=== PATIENT | male | born 1985 | race Caucasian/White ===

== ENCOUNTER 2016-05-28 15:30 | Emergency (ER) | payer OTHER ==
--- NOTE | 2016-05-28 18:47 | DIAGNOSTIC IMAGING REPORT ---
PROCEDURE: CT ABD/PELVIS WITH CONTRAST CLINICAL INDICATION: ABDOMINAL PAIN, initial encounter TECHNIQUE: 125 ml of Isovue 300 were injected intravenously and axial images were obtained of the entire abdomen and pelvis with sagittal and coronal reformations. COMPARISON: None. FINDINGS: ABDOMEN: Wall thickening with mild inflammatory changes of the gastric antrum with a focal defect suggestive of gastritis and possible ulcer.. Lung bases are clear. Heart size is normal. Liver, gallbladder, pancreas, spleen, adrenal glands, kidneys and abdominal aorta are normal. Stool throughout the large bowel. PELVIS: Appendix not visualized but no evidence of acute appendicitis. No prominent right lower quadrant lymph nodes. No pelvic mass, inflammatory changes or free fluid. No suspicious osseous lesions. IMPRESSION: 1. Findings suggestive of gastritis and possible gastric ulcer 2. Obstipation 3. Results discussed with Dr. Burch All CT scans at this facility use dose modulation, iterative reconstruction, and/or weight-based dosing when appropriate to reduce radiation dose to as low as reasonably achievable.
--- NOTE | 2016-05-28 18:48 | ED CLINICAL REPORT ---
Clinical Report - Physicians/Mid Levels [facility] [address] [place] [address] 05/28/2016 15:31 Patient: TRACIE CHAVEZ Time Seen: 16:29. Arrived- By private vehicle. Historian- patient. HISTORY OF PRESENT ILLNESS Chief Complaint: ABDOMINAL PAIN. At its maximum, severity described as moderate. When seen in the E.D., severity described as moderate. Modifying factors- worsened by food and swallowing. Relieved by rest. This started about 1 week ago and is still present. It was gradual in onset and has been waxing/waning. It is described as "pain" and it is described as located in the epigastric area and radiating to the upper back. The patient has had nausea. No vomiting or diarrhea. (Started one week ago today. Pain located in epigastric area as well as mid back. Pt states he has been nauseated but no emesis, as well as he states he has not had a bowel movement in a week.). He has had nausea, constipation and abdominal pain). No recent travel. Similar symptoms previously: Diagnosis: ulcer. Recent medical care: Not recently seen/assessed. REVIEW OF SYSTEMS The patient has had constipation and back pain. No black stools, hematemesis, difficulty with urination, pain with urination or urinary frequency. No bloody stools, fever, headache, sore throat or chest pain. No difficulty breathing, cough, joint pain or skin rash. Last bowel movement- several days ago. All systems otherwise negative, except as recorded above. PAST HISTORY Peptic ulcer diagnosed about 6 years ago. PCP: [facility]. No history of gallstones or bowel obstruction. Has not had urinary calculi. ( Opiate dependence - taking suboxone). Surgeries: No history of previous surgery. SOCIAL HISTORY Smoker- current status unknown. No alcohol use or drug use. ADDITIONAL NOTES The nursing notes have been reviewed. PHYSICAL EXAM Vital Signs: 05/28/2016 16:04 BP: 131/93. HR: 115. RR: 18. O2 saturation: 100%. Temp: 98.2 F. Pain level now: 6/10. Appearance: Alert. Oriented X3. Patient in mild distress. Eyes: Eyes normal inspection. No scleral icterus or pale conjunctivae. ENT: Nose normal. Pharynx normal. Neck: Normal inspection. Neck supple. No JVD. CVS: Tachycardia. Heart sounds normal. Pulses normal. Respiratory: No respiratory distress. Breath sounds normal. Abdomen: Soft. Moderate tenderness in the epigastric area. No tenderness in the right upper quadrant or Ibarra's sign present. No mass. No rebound tenderness or guarding. Back: Normal inspection. No CVA tenderness. Skin: Skin warm and dry. Normal skin color. Normal skin turgor. Extremities: Extremities exhibit normal ROM. No lower extremity edema. Neuro: Oriented X 3. No motor deficit. LABS, X-RAYS, AND EKG Abdominal CT: IMPRESSION: 1. Findings suggestive of gastritis and possible gastric ulcer 2. Obstipation. Study type: abdomen and pelvis. Abdominal CT performed with IV contrast. The study was interpreted by the radiologist and discussed with the radiologist. Laboratory Tests: UA-Culture if indicated: (JANIA: 05/28/2016 16:30) ( [facility] 05/28/2016 16:55) Final results Test Result Flag Units (Reference) URINE COLOR YELLOW URINE APPEARANCE CLEAR URINE GLUCOSE NEGATIVE (NEGATIVE) URINE BILIRUBIN NEGATIVE (NEGATIVE) URINE KETONE NEGATIVE (NEGATIVE) URINE SPECIFIC GRAVITY >= 1.030 (1.010-1.030) URINE PH 6.0 (5.0-8.0) URINE PROTEIN NEGATIVE (NEGATIVE) URINE UROBILINOGEN 0.2 EU/dL (0.2-1.0) URINE NITRITE NEGATIVE (NEGATIVE) URINE BLOOD NEGATIVE (NEGATIVE) URINE LEUK ESTERASE NEGATIVE (NEGATIVE) URINE RBC NONE SEEN rbc/hpf (0-1) URINE WBC RARE wbc/hpf (0-1) URINE EPITHELIAL CELLS RARE EPI/hpf (0-5) URINE BACTERIA NONE SEEN (NONE SEEN) URINE COMMENT CULT NOT INDICATED 1+ MUCUSURINE CULTURES ARE SET-UP BASED ON THE FOLLOWING CRITERIA:POSITIVE NITRITEPOSITIVE LEUKOCYTE ESTERASEGREATER THAN 10 WHITE BLOOD CELLSMODERATE (2+) OR GREATER BACTERIA CBC w Diff: (JANIA: 05/28/2016 16:25) ( [facility] [place] 05/28/2016 17:15) Final results Test Result Flag Units (Reference) WHITE BLOOD COUNT 11.1 K/uL (4.5-11.5) RED BLOOD COUNT 4.66 M/uL (4.50-5.90) HEMOGLOBIN 13.5 gm/dL (13.5-17.5) HEMATOCRIT 40.9 L % (41.0-53.0) MEAN CELL VOLUME 88 fL (80-100) MEAN CORPUSCULAR HGB 29 pg (26-34) MEAN CORPUSCULAR HGB CONC 33 g/dL (31-37) RED CELL DISTRIBUTION WIDTH 12.8 % (11.6-14.8) PLATELET COUNT 264 K/uL (150-400) NEUTROPHIL % 61.2 % (50-75) LYMPH % 29.3 % (25-40) MONO % 6.6 % (3-14) EOSINOPHIL % 2.6 % (0-4) BASOPHIL % 0.3 % (0-2) Urine Drug Screen: (JANIA: 05/28/2016 16:30) ( MsgRcvd 05/28/2016 17:07) Final results Test Result Flag Units (Reference) AMPHETAMINE/METHAMPHETAMINE NEGATIVE (NEGATIVE) BARBITURATE NEGATIVE (NEGATIVE) BENZODIAZEPINE NEGATIVE (NEGATIVE) CANNABINOID NEGATIVE (NEGATIVE) COCAINE NEGATIVE (NEGATIVE) ECSTASY NEGATIVE (NEGATIVE) METHADONE NEGATIVE (NEGATIVE) OPIATE NEGATIVE (NEGATIVE) The urine drug screen is a qualitative screening test fordrug overdose and abuse. All screen results should beconsidered as presumptive.Drugs screened for are as follows:BenzodiazepinesCocaineAmphetamines/MetamphetaminesTHC (Tetrahydrocannabinol)OpiatesBarbituratesEcstasyMethadonePositive results are unconfirmed. For confirmation, notifythe lab for the specimen to be sent to the reference lab.All confirmations must be performed by a differentmethodology.The ingestion of natural herbal and plant productscontaining Ephedra/Ephedra metabolites can produce in urineone or more substances capable of cross reacting withamphetamine/methamphetamine immunoassays. These testsprovide a preliminary result only. A more specificalternative chemical method must be used to obtain aconfirmed analytical result. CMP: (JANIA: 05/28/2016 16:25) ( MsgRcvd 05/28/2016 17:17) Final results Test Result Flag Units (Reference) GLUCOSE 88 mg/dL (70-110) BUN 14 mg/dL (7-18) CREATININE 1.0 mg/dL (0.6-1.3) Estimated GFR >60 mL/min Estimated GFR- >60 mL/min Note: Persistent reduction over 3 months in eGFR<60 mL/min/1.73 m2 defines CKD. Patients with eGFR values>=60 mL/min/1.73 m2 may also have CKD if evidence ofpersistent proteinuria. Additional information may be foundat www.kidney.org. SODIUM 142 mmol/L (136-145) POTASSIUM 4.0 mmol/L (3.5-5.1) CHLORIDE 106 mmol/L (98-107) CARBON DIOXIDE 29 mmol/L (21-32) CALCIUM 8.8 mg/dL (8.5-10.1) TOTAL PROTEIN 7.0 g/dL (6.4-8.2) ALBUMIN 3.9 g/dL (3.3-5.0) BILIRUBIN, TOTAL 0.2 mg/dL (0.0-1.0) ALKALINE PHOSPHATASE 107 U/L (46-116) AST (SGOT) 13 L U/L (15-37) ALT (SGPT) 28 U/L (12-78) LIPASE 100 U/L (73-393) AMYLASE 55 U/L (25-115) . Pulse Oximetry: 05/28/2016 16:04 O2 saturation: 100%. (FIO2 - room air). Interpretation: normal. PROGRESS AND PROCEDURES Course of Care: Normal Saline 1 liter IVPB given. Carafate 1 gm PO given. Zofran 4 mg IVP given. Protonix 40 mg IVP given. Reglan 10 mg IVP given. Patient is stable. Physical exam findings are improved. Symptoms much better. Patient/family counseled. Old ED records reviewed. Disposition: Discharged. Condition: stable and improved. CLINICAL IMPRESSION Acute epigastric abdominal pain of unknown cause. Acute gastric ulcer disease. No GI bleeding or perforation. Constipation INSTRUCTIONS Rest. Do not work for three days. Drink plenty of fluids. No alcohol. Avoid alcohol and NSAIDS. Examples of NSAIDS include aspirin, ibuprofen (Advil) and naproxen (Aleve). Avoid fatty, fried/greasy, lactose-containing (such as milk, cheese and ice cream), salty and spicy foods. Do not smoke. Seek medical help to quit smoking. Warnings: Further evaluation is necessary in order to recheck abnormal lab, obtain test results, conduct further tests and assess the possibility of serious illness. It is very important to follow up with a physician. CONTROLLED SUBSTANCE WARNINGS. GENERAL WARNINGS: Return or contact your physician immediately if your condition worsens or changes unexpectedly, if not improving as expected, or if other problems arise. Prescription Medications: Hydrocodone/APAP 5mg / 325mg: take 1-2 orally every 8 hours as needed for pain. Dispense ten (10). No refill. Carafate 1 gm tablets: take 1 orally four times daily (1 hour before meals and at bedtime). Dispense sixty (60). No refills. Substitution is permissible. Prilosec 20 mg capsules: Take 1 capsule orally once daily. Dispense fifteen (15). No refills. Substitution is permissible. OTC Medications: Take magnesium citrate and Fleets enema according to label instructions. Available over the counter. Dulcolax (available over the counter): take according to label instructions. Follow-up: Follow up with your doctor [facility] [place] tomorrow. Follow-up with: Felipe Durham MD, General Surgeon, , [facility], [address] [place] [address], [facility] Follow up. Call for the next available appointment. (Electronically signed by Felipe Burch DO 05/29/2016 8:00)
--- NOTE | 2016-05-28 18:49 | ED NURSING NOTES ---
Clinical Report - Nurses [facility] [address] [place] [address] 05/28/2016 15:31 Patient: TRACIE CHAVEZ TRIAGE Triage time 16:04. Acuity: LEVEL 4. Chief Complaint: ABDOMINAL PAIN and NAUSEA. 16:14 05/28/16. 16:14 05/28/16. DARREN COMA SCORE: [place] Coma Scale: 15- eyes open spontaneously (4); best verbal response- oriented x 4 (5); best motor response- obeys commands (6). --16:14 Allegra Forrester R.N. 16:04 05/28/16. BP: 131/93. HR: 115. RR: 18. O2 saturation: 100%. Temp: 98.2 F. Pain level now: 6/10. Additional comments: Pt states 6/10 epigastric pain, states it feels like someone is "pulling apart" his stomach. Also states that he has back pain that is about the same height but tends to be more on left side of back. . --16:14 Allegra Forrester R.N. Weight: 79.3 kg stated. Height/Length: 70 inches Per Patient. BMI: 25.1. --16:07 Allegra Forrester R.N. Medications None. --16:15 Allegra Forrester R.N. Allergies None. --16:15 Allegra Forrester R.N. History Arrived by private vehicle. 16:14 05/28/16. ( Started one week ago today. Pain located in epigastric area as well as mid back. Pt states he has been nauseated but no emesis, as well as he states he has not had a bowel movement in a week.). He has had nausea, constipation and abdominal pain. Treatment KARATE BLACK BELT: Took Tylenol and an antacid. (cyclobenzapine for back pain). PAST MEDICAL HX: Immunizations: up-to-date. (peptic ulcer). SOCIAL HX: Light tobacco smoker- less than 1/2 a pack per day. Alcohol use. (none). History of drug use. (none). FALL RISK ASSESSMENT: Fall risk assessment completed. No fall risk identified. NUTRITIONAL RISK ASSESSMENT: The nutritional risk assessment revealed no deficiencies. FUNCTIONAL ASSESSMENT: Functional assessment: no impairments noted. LEARNING NEEDS ASSESSMENT: The learning needs assessment revealed no barriers. SKIN INTEGRITY ASSESSMENT: Skin integrity risk assessment completed. No skin integrity risk identified. --16:14 Allegra Forrester R.N. Assessment 16:14 05/28/16. He states feels the same. --16:14 Allegra Forrester R.N. Interventions 16:14 05/28/16. 16:14 05/28/16. ID band on patient. --16:14 Allegra Forrester R.N. PHYSICAL ASSESSMENT Ambulatory to room. GENERAL / NEURO / PSYCH: Alert. Oriented X 4. Appears in pain. HEENT: Mucous membranes are pink. RESPIRATORY: Respirations not labored. GI / : Abdominal tenderness in the upper abdomen and epigastric area. SKIN: Skin is warm and dry. --16:20 Marlon Green R.N. NURSING PROGRESS NOTES Patient gowned. Reassurance given. Patient identifiers checked. Call light placed in reach. Side rails up x 1. Bed placed in lowest position. Brakes of bed on. Patient ready for evaluation- chart flagged and ED physician notified. --16:21 Marlon Green R.N. 16:24 05/28/16. Patient ID band checked for patient name, birthdate and medical record number: patient confirmed. Clean catch urine collected with return of yellow-colored clear urine; odor is normal; sample sent to lab for urinalysis and culture. Specimen labeled in the presence of the patient. --16:24 Marlon Green R.N. 16:42 05/28/2016 Site #1 started via IV in the right antecubital space with an 20g angiocath, with aseptic technique and good blood return; one attempt. Blood drawn: rainbow set. Labeled in the presence of the patient and sent to the lab. Saline lock flushed with 10 mL saline. --16:47 Marlon Green R.N. 16:47 05/28/2016 Started bag #1 1000 mL IV Fluids IV NS (Saline); at 1000 mL/hr over 60 minute(s) via site #1. Allergies verified and confirmed 5 rights. IV patency established. IV site checked: no pain, redness, or swelling. IV flushed thoroughly pre- and post-medication administration. --16:47 Marlon Green R.N. 16:54 05/28/2016 Zofran (Ondansetron HCl) IVP 4 mg given over 2 minute(s) via site #1. Allergies verified and confirmed 5 rights. IV patency established. IV site checked: no pain, redness, or swelling. IV flushed thoroughly pre- and post-medication administration. IVP given by RN. --16:59 Marlon Green R.N. 16:56 05/28/2016 Reglan (Metoclopramide HCl) IVP 10 mg given over 2 minute(s) via site #1. Allergies verified and confirmed 5 rights. IV patency established. IV site checked: no pain, redness, or swelling. IV flushed thoroughly pre- and post-medication administration. IVP given by RN. --17:00 Marlon Green R.N. 17:00 05/28/2016 PROTONIX (Pantoprazole Sodium) IVP 40 mg given over 2 minute(s) via site #1. Allergies verified and confirmed 5 rights. IV patency established. IV site checked: no pain, redness, or swelling. IV flushed thoroughly pre- and post-medication administration. IVP given by RN. --17:00 Marlon Green R.N. 18:00 05/28/2016 IV Fluids IV NS Bag Change: bag #1. Total amount infused: 1000. STARTED bag #2 at 1000 mL/hr via IV pump. Confirmed 5 rights. IV patency established. IV site checked: no pain, redness, or swelling. IV flushed thoroughly. --18:11 Marlon Green R.N. Patient returned from [place] by stretcher. --18:20 Viktoria Oviedo R.N. 18:00. Patient transported to MA by stretcher with tech. --18:46 Marlon Green R.N. 18:50 05/28/2016 Carafate (Sucralfate) PO Oral Suspension 1 gm given. Allergies verified and confirmed 5 rights. --18:55 Marlon Green R.N. 19:00 05/28/2016 IV Fluids IV NS Discontinued: bag #2 infused. Total amount infused: 1000 mL. IV patency established. IV site checked: no pain, redness, or swelling. IV flushed thoroughly. --21:49 Marlon Green R.N. 19:45 05/28/2016 Site #1 removed upon discharge. Catheter intact. Pressure dressing, bandaid and bandage applied. --21:50 Marlon Green R.N. DISPOSITION / DISCHARGE 19:45 05/28/16. BP: 130/82. HR: 89. RR: 16. O2 saturation: 99% on room air. Temp: 98.8 F (oral). Pain level now: 06/19. --21:44 Marlon Green R.N. Departure time: 1949. --21:46 Marlon Green R.N. 19:50. Condition at departure: improved. No learning barriers present. Discharge instructions provided and reviewed with the patient. Reviewed medication(s) (prescription given to pt). Reviewed referral to family practice for followup. Patient verbalized understanding. Written instructions provided in Wolof. The patient was discharged by the physician. He was discharged home and accompanied by barrel finisher. He left the Emergency Department ambulatory and via private vehicle. 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 --21:47 Marlon Green R.N. Locked/Released at 05/28/2016 21:51 by Marlon Green R.N.
--- NOTE | 2016-05-28 18:49 | ED ORDER SUMMARY ---
..... Patient: TRACIE CHAVEZ OrderSheet [facility] VisitID: [id number] [place] [address] 30y, M Registration Date/Time: 05/28/2016 ORDER SHEET Weight: 79.3 kg (stated) Allergies: None GENERAL ORDERS: UA-Culture if indicated Urgent (16:25 05/28/2016 JRomanelli R.N. verbal order read back to [facility]) (Ack 16:28 LTapper) (16:46 JRomanelli R.N.) CT Abd/Pel w Cont (No) (N/A) Urgent (16:30 05/28/2016 [facility]) (Ack 16:36 LTapper) (18:51 JRomanelli R.N.) CBC w Diff Urgent (16:31 05/28/2016 [facility]) (Ack 16:36 LTapper) (16:46 JRomanelli R.N.) CMP Urgent (16:05/28/2016 [facility]) (Ack 16:36 LTapper) (16:46 JRomanelli R.N.) Amylase Urgent (16:05/28/2016 [facility]) (Ack 16:36 LTapper) (16:46 JRomanelli R.N.) Lipase Urgent (16:05/28/2016 [facility]) (Ack 16:36 LTapper) (16:46 JRomanelli R.N.) Urine Drug Screen Urgent (16:05/28/2016 [facility]) (Ack 16:36 LTapper) (16:46 JRomanelli R.N.) NPO (16:05/28/2016 [facility]) (16:46 JRomanelli R.N.) MEDICATION ORDERS: Carafate PO 1 gm (NOW) (18:47 05/28/2016 [facility]) (18:55 JRomanelli R.N.) IV FLUIDS: IV NS : initial bolus 1000 mL (1000 mL/hr), then 1000 mL/hr for X2 (NOW) (16:31 05/28/2016 [facility]) (16:47 Nichol Dubon.N.) Zofran IV 4 mg (NOW) (16:31 05/28/2016 [facility]) (16:59 Nichol R.N.) Reglan IV 10 mg (NOW) (16:31 05/28/2016 [facility]) (17:00 Nichol R.N.) Protonix IVP 40mg 40 mg (Mix in NS 10ml over 2min) (16:05/28/2016 [facility]) (17:00 Nichol R.N.) ORDER SHEET NOTES: [Electronically signed by Marlon Green R.N. (21:51 05/28/2016)] [Electronically signed by Felipe Burch DO (08:00 05/29/2016)] [Electronically locked/signed by Marlon Green R.N. (21:51 05/28/2016)]
--- NOTE | 2016-05-28 18:49 | ED NURSING NOTES ---
Clinical Report - Nurses [facility] [address] [place] [address] 05/28/2016 15:31 Patient: TRACIE CHAVEZ TRIAGE Triage time 16:04. Acuity: LEVEL 4. Chief Complaint: ABDOMINAL PAIN and NAUSEA. 16:14 05/28/16. 16:14 05/28/16. DARREN COMA SCORE: [place] Coma Scale: 15- eyes open spontaneously (4); best verbal response- oriented x 4 (5); best motor response- obeys commands (6). --16:14 Allegra Forrester R.N. 16:04 05/28/16. BP: 131/93. HR: 115. RR: 18. O2 saturation: 100%. Temp: 98.2 F. Pain level now: 6/10. Additional comments: Pt states 6/10 epigastric pain, states it feels like someone is "pulling apart" his stomach. Also states that he has back pain that is about the same height but tends to be more on left side of back. . --16:14 Allegra Forrester R.N. Weight: 79.3 kg stated. Height/Length: 70 inches Per Patient. BMI: 25.1. --16:07 Allegra Forrester R.N. Medications None. --16:15 Allegra Forrester R.N. Allergies None. --16:15 Allegra Forrester R.N. History Arrived by private vehicle. 16:14 05/28/16. ( Started one week ago today. Pain located in epigastric area as well as mid back. Pt states he has been nauseated but no emesis, as well as he states he has not had a bowel movement in a week.). He has had nausea, constipation and abdominal pain. 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 (cyclobenzapine for back pain). PAST MEDICAL HX: Immunizations: up-to-date. (peptic ulcer). SOCIAL HX: Light tobacco smoker- less than 1/2 a pack per day. Alcohol use. (none). History of drug use. (none). FALL RISK ASSESSMENT: Fall risk assessment completed. No fall risk identified. NUTRITIONAL RISK ASSESSMENT: The nutritional risk assessment revealed no deficiencies. FUNCTIONAL ASSESSMENT: Functional assessment: no impairments noted. LEARNING NEEDS ASSESSMENT: The learning needs assessment revealed no barriers. SKIN INTEGRITY ASSESSMENT: Skin integrity risk assessment completed. No skin integrity risk identified. --16:14 Allegra Forrester R.N. Assessment 16:14 05/28/16. He states feels the same. --16:14 Allegra Forrester R.N. Interventions 16:14 05/28/16. 16:14 05/28/16. ID band on patient. --16:14 Allegra Forrester R.N. PHYSICAL ASSESSMENT Ambulatory to room. GENERAL / NEURO / PSYCH: Alert. Oriented X 4. Appears in pain. HEENT: Mucous membranes are pink. RESPIRATORY: Respirations not labored. GI / : Abdominal tenderness in the upper abdomen and epigastric area. SKIN: Skin is warm and dry. --16:20 Marlon Green R.N. NURSING PROGRESS NOTES Patient gowned. Reassurance given. Patient identifiers checked. Call light placed in reach. Side rails up x 1. Bed placed in lowest position. Brakes of bed on. Patient ready for evaluation- chart flagged and ED physician notified. --16:21 Marlon Green R.N. 16:24 05/28/16. Patient ID band checked for patient name, birthdate and medical record number: patient confirmed. Clean catch urine collected with return of yellow-colored clear urine; odor is normal; sample sent to lab for urinalysis and culture. Specimen labeled in the presence of the patient. --16:24 Marlon Green R.N. 16:42 05/28/2016 Site #1 started via IV in the right antecubital space with an 20g angiocath, with aseptic technique and good blood return; one attempt. Blood drawn: rainbow set. Labeled in the presence of the patient and sent to the lab. Saline lock flushed with 10 mL saline. --16:47 Marlon Green R.N. 16:47 05/28/2016 Started bag #1 1000 mL IV Fluids IV NS (Saline); at 1000 mL/hr over 60 minute(s) via site #1. Allergies verified and confirmed 5 rights. IV patency established. IV site checked: no pain, redness, or swelling. IV flushed thoroughly pre- and post-medication administration. --16:47 Marlon Green R.N. 16:54 05/28/2016 Zofran (Ondansetron HCl) IVP 4 mg given over 2 minute(s) via site #1. Allergies verified and confirmed 5 rights. IV patency established. IV site checked: no pain, redness, or swelling. IV flushed thoroughly pre- and post-medication administration. IVP given by RN. --16:59 Marlon Green R.N. 16:56 05/28/2016 Reglan (Metoclopramide HCl) IVP 10 mg given over 2 minute(s) via site #1. Allergies verified and confirmed 5 rights. IV patency established. IV site checked: no pain, redness, or swelling. IV flushed thoroughly pre- and post-medication administration. IVP given by RN. --17:00 Marlon Green R.N. 17:00 05/28/2016 PROTONIX (Pantoprazole Sodium) IVP 40 mg given over 2 minute(s) via site #1. Allergies verified and confirmed 5 rights. IV patency established. IV site checked: no pain, redness, or swelling. IV flushed thoroughly pre- and post-medication administration. IVP given by RN. --17:00 Marlon Green R.N. 18:00 05/28/2016 IV Fluids IV NS Bag Change: bag #1. Total amount infused: 1000. STARTED bag #2 at 1000 mL/hr via IV pump. Confirmed 5 rights. IV patency established. IV site checked: no pain, redness, or swelling. IV flushed thoroughly. --18:11 Marlon Green R.N. Patient returned from [place] by stretcher. --18:20 Viktoria Oviedo R.N. 18:00. Patient transported to [place] by stretcher with tech. --18:46 Marlon Green R.N. 18:50 05/28/2016 Carafate (Sucralfate) PO Oral Suspension 1 gm given. Allergies verified and confirmed 5 rights. --18:55 Marlon Green R.N. 19:00 05/28/2016 IV Fluids IV NS Discontinued: bag #2 infused. Total amount infused: 1000 mL. IV patency established. IV site checked: no pain, redness, or swelling. IV flushed thoroughly. --21:49 Marlon Green R.N. 19:45 05/28/2016 Site #1 removed upon discharge. Catheter intact. Pressure dressing, bandaid and bandage applied. --21:50 Marlon Green R.N. DISPOSITION / DISCHARGE 19:45 05/28/16. BP: 130/82. HR: 89. RR: 16. O2 saturation: 99% on room air. Temp: 98.8 F (oral). Pain level now: 06/19. --21:44 Marlon Green R.N. Departure time: 1949. --21:46 Marlon Green R.N. 19:50. Condition at departure: improved. No learning barriers present. Discharge instructions provided and reviewed with the patient. Reviewed medication(s) (prescription given to pt). Reviewed referral to family practice for followup. Patient verbalized understanding. Written instructions provided in Faroese. The patient was discharged by the physician. He was discharged home and accompanied by interpreter for the deaf. He left the Emergency Department ambulatory and via private vehicle. Forestry Biology Specialist driving. --21:47 Marlon Green R.N. Locked/Released at 05/28/2016 21:51 by Marlon Green R.N.
--- NOTE | 2016-05-28 18:49 | ED ORDER SUMMARY ---
..... Patient: TRACIE CHAVEZ OrderSheet [facility] VisitID: [id number] [place] [address] 30y, M Registration Date/Time: 05/28/2016 ORDER SHEET Weight: 79.3 kg (stated) Allergies: None GENERAL ORDERS: UA-Culture if indicated Urgent (16:25 05/28/2016 JRomanelli R.N. verbal order read back to [facility]) (Ack 16:28 LTapper) (16:46 JRomanelli R.N.) CT Abd/Pel w Cont (No) (N/A) Urgent (16:30 05/28/2016 [facility]) (Ack 16:36 LTapper) (18:51 JRomanelli R.N.) CBC w Diff Urgent (16:31 05/28/2016 [facility]) (Ack 16:36 LTapper) (16:46 JRomanelli R.N.) CMP Urgent (16:05/28/2016 [facility]) (Ack 16:36 LTapper) (16:46 JRomanelli R.N.) Amylase Urgent (16:05/28/2016 [facility]) (Ack 16:36 LTapper) (16:46 JRomanelli R.N.) Lipase Urgent (16:05/28/2016 [facility]) (Ack 16:36 LTapper) (16:46 JRomanelli R.N.) Urine Drug Screen Urgent (16:05/28/2016 [facility]) (Ack 16:36 LTapper) (16:46 JRomanelli R.N.) NPO (16:05/28/2016 [facility]) (16:46 JRomanelli R.N.) MEDICATION ORDERS: Carafate PO 1 gm (NOW) (18:47 05/28/2016 [facility]) (18:55 JRomanelli R.N.) IV FLUIDS: IV NS : initial bolus 1000 mL (1000 mL/hr), then 1000 mL/hr for X2 (NOW) (16:31 05/28/2016 [facility]) (16:47 Nichol Dubon.N.) Zofran IV 4 mg (NOW) (16:31 05/28/2016 [facility]) (16:59 Nichol R.N.) Reglan IV 10 mg (NOW) (16:31 05/28/2016 [facility]) (17:00 Nichol R.N.) Protonix IVP 40mg 40 mg (Mix in NS 10ml over 2min) (16:05/28/2016 [facility]) (17:00 Nichol R.N.) ORDER SHEET NOTES: [Electronically signed by Marlon Green R.N. (21:51 05/28/2016)] [Electronically signed by Felipe Burch DO (08:00 05/29/2016)] [Electronically locked/signed by Marlon Green R.N. (21:51 05/28/2016)]
--- NOTE | 2016-05-29 08:01 | ED DISCHARGE INSTRUCTIONS ---
Patient: TRACIE CHAVEZ General Instructions [facility] VisitID: [id number] [place], [place] [id number] 30y, M Registration Date/Time: 05/28/2016 Acute epigastric abdominal pain of unknown cause. Acute gastric ulcer disease. No GI bleeding or perforation. Constipation INSTRUCTIONS Rest. Do not work for three days. Drink plenty of fluids. No alcohol. Avoid alcohol and NSAIDS. Examples of NSAIDS include aspirin, ibuprofen (Advil) and naproxen (Aleve). Avoid fatty, fried/greasy, lactose-containing (such as milk, cheese and ice cream), salty and spicy foods. Do not smoke. Seek medical help to quit smoking. Warnings: Further evaluation is necessary in order to recheck abnormal lab, obtain test results, conduct further tests and assess the possibility of serious illness. It is very important to follow up with a physician. CONTROLLED SUBSTANCE WARNINGS. GENERAL WARNINGS: Return or contact your physician immediately if your condition worsens or changes unexpectedly, if not improving as expected, or if other problems arise. Prescription Medications: Hydrocodone/APAP 5mg / 325mg: take 1-2 orally every 8 hours as needed for pain. Dispense ten (10). No refill. Carafate 1 gm tablets: take 1 orally four times daily (1 hour before meals and at bedtime). Dispense sixty (60). No refills. Substitution is permissible. Prilosec 20 mg capsules: Take 1 capsule orally once daily. Dispense fifteen (15). No refills. Substitution is permissible. OTC Medications: Take magnesium citrate and Fleets enema according to label instructions. Available over the counter. Dulcolax (available over the counter): take according to label instructions. Follow-up: Follow up with your doctor [facility] tomorrow. Follow-up with: Felipe Durham MD, General Surgeon, , [facility], [address] [place] [address], [id number] Follow up. Call for the next available appointment. ADDITIONAL INFORMATION Epigastric Pain (Uncertain Cause) Epigastric pain can be a sign of disease in the upper abdomen. Common causes include: Acid reflux (stomach acid flowing up into the esophagus) Gastritis (irritation of the stomach lining) Peptic Ulcer Disease Inflammation of the pancreas Gallstone Infection in the gallbladder Pain may be dull or burning. It may spread upward to the chest or to the back. There may be other symptoms such as belching, bloating, cramps or hunger pains. There may be weight loss or poor appetite, nausea or vomiting. Since the diagnosis of your pain is not certain yet, further tests will be needed. Sometimes the doctor will treat you for the most likely condition to see if there is improvement before doing further tests. Home Care: Unless told otherwise, you may try antacids (Mylanta or Maalox) help neutralize stomach acid. This may relieve your pain. Take 1-2 tablespoons or tablets one hour after meals and at bedtime. The liquid form coats the stomach better than the chewable tablets and is preferred. If Tagamet (cimetidine), Zantac (ranitidine), or Carafate (sucralfate) has also been prescribed, allow one hour between taking this medicine and taking the antacids. Avoid foods that irritate the stomach. Follow a light diet until you are feeling better. Avoid alcohol, caffeine, and tobacco. Talk to your doctor before taking any glut-nff-brtnpsa medicine that contains aspirin or an anti-inflammatory drug such as ibuprofen, Advil, Motrin, Naprosyn, or Aleve. Follow Up with your doctor or as advised if you do not improve over the next 48 hours. Get Prompt Medical Attention if any of the following occur: Stomach pain worsens or moves to the right lower part of the abdomen Chest pain appears, or if it worsens or spreads to the chest, back, neck, shoulder, or arm Frequent vomiting (cant keep down liquids) Blood in the stool or vomit (red or black color) Feeling weak or dizzy, fainting, or having trouble breathing Fever of 100.4F (38C) or higher, or as directed by your healthcare provider Abdominal swelling Gastritis Versus Ulcer (No Antibiotic Tx) The symptoms of gastritis and peptic ulcer are very similar. Both can cause a dull ache or burning pain in the upper abdomen. Other symptoms include nausea, vomiting, loss of appetite, and belching or bloating. Blood in the vomit or stools (red or black) is a sign of bleeding in the stomach. This requires immediate medical attention. A Peptic Ulcer is an open sore in the lining of the stomach or duodenum (upper intestine). The most common cause of peptic ulcer disease is a bacterial infection (H pylori) in the stomach. Another common cause is taking anti-inflammatory medications (such as ibuprofen, prednisone, and aspirin). Gastritis is an irritation of the stomach lining. It can be acute (recent) or chronic (lasting a long time). Gastritis can be caused by overuse of alcohol or anti-inflammatory medications (such as aspirin, ibuprofen, prednisone). H pyloriinfection can also cause chronic gastritis. Tests for H pyloriare used to screen for bacterial infection. If no infection is found, ulcer and gastritis can be treated by stopping the cause, such as anti-inflammatory medications, alcohol, caffeine, and tobacco, and treating with antacids plus an acid carmen medication. If H pylori infection is found, antibiotics will be prescribed along with an acid carmen. Persons 55 years and older may undergo other tests before treatment is started. Two common tests are used to evaluate your symptoms. An upper GI series is an x-ray taken after you drink a chalky liquid called barium. This coats the stomach and allows an ulcer to show up on the x-ray. Another test is called endoscopy during which a long thin tube called an endoscope is passed down your throat to the stomach. A camera at the end of the scope allows the doctor to view inside the stomach to check the cause of your symptoms. Home Care: Take the prescribed acid carmen medication for the full course of treatment even if you begin to feel better sooner. This medication can take up to several days to fully control your symptoms. If you cant afford the prescribed medication, you can try dhvh-psl-slfplvd acid blockers, such as Pepcid AC, Tagamet, Zantac, or Aciphex. If these do not relieve your symptoms, a stronger acid-carmen can be tried, such as Prilosec OTC. If you have been prescribed an antibiotic to treat H pyloriinfection, finish the full course of medication. Do so even if you begin to feel better sooner. If you stop the medication too soon, the infection can return and be harder to treat. You can use antacids, such as Tums, Rolaids, Mylanta, or Maalox, for pain. This will be useful the first few days after starting acid blockers when the blockers havent started working yet. Follow the directions on the label. Liquid antacids may work better than tablets. Note that antacids can interfere with absorption of certain medications. Specifically, do not take Tagamet (cimetidine), Zantac (ranitidine), or Carafate (sucralfate) within 1 hour of taking an antacid. Talk with your pharmacist if you have any questions. Although foods do not cause an ulcer, symptoms can be worsened by certain foods. Limit or avoid fatty, fried, and spicy foods, as well as coffee, chocolate, mint, and foods with high acid content such as tomatoes and citrus fruit and juices (orange, grapefruit, lemon). Avoid alcohol, caffeine, and tobacco, which can delay healing. Avoid aspirin and anti-inflammatory medications such as ibuprofen (Advil, Motrin) and naproxen (Naprosyn, Aleve). Acetaminophen (Tylenol) is safe to use. Do not take more than the amount listed on the label. Follow Up with your doctor or as advised. Further testing may be needed. If you do not begin to improve over the next 4 days, contact your doctor. If you had tests, youll be notified of any new findings that affect your care. Get Prompt Medical Attention if any of the following occur: Stomach pain gets worse or moves to the lower right abdomen (appendix area) Chest pain appears or gets worse, or spreads to the back, neck, shoulder, or arm Frequent vomiting (cant keep down liquids) Blood in the stool or vomit (red or black in color) Feeling weak or dizzy, fainting, or trouble breathing Fever of 100.4F (38C) or higher, or as directed by your healthcare provider Constipation (Adult) Constipation is bowel movements that are less frequent than usual. Stools often become very hard and difficult to pass. This may lead to abdominal pain and bloating. It may also cause painful bowel movements. Constipation may be due to a diet thats low in fiber. Some medications, especially pain medications, can also cause it. Constipation may be treated with enemas, suppositories, laxatives or stool softeners. Your doctor will advise you which will work best for you. Follow the advice below to help avoid this problem in the future. Home Care Medication: Take any medicines as directed. Some laxatives are safe only for occasional use. Others can be taken on a regular basis. Talk to your doctor or pharmacist if you have questions. General Care: Prescription pain medications can cause constipation. If you are prescribed pain medications, ask the doctor whether you should also take a stool softener. A diet high in fiber with plenty of fluids helps to maintain regular, soft bowel movements. The following foods are good sources of dietary fiber: Cereals and breads: Whole grain cereal with bran, oatmeal, rolled oats, whole grain breads Fruits: All fruits (fresh and dried), raisins, prunes, apricots, berries, figs Vegetables: Any fresh vegetables, especially peas, broccoli, brussels sprouts, winter squash, green beans, cauliflower, bhatti beans, carrots Other: Popcorn, brown rice Drink plenty of water when you increase the amount of fiber you eat. Follow Up with your doctor or return to this facility if symptoms do not improve in the next few days. You may require further tests or a referral to a specialist. Get Prompt Medical Attention if any of the following occur: Fever over 100.4F (38C) Failure to resume normal bowel movements Increasing abdominal or back pain Nausea or vomiting Abdominal swelling Blood in the stool Weakness, dizziness or fainting Unexpected vaginal bleeding [place] Diet A bland diet is used for patients with an upset stomach. It consists of foods that are mild and easy to digest. It is better to eat small frequent meals rather than three large meals a day. BEVERAGES OK: Fruit juices, non-caffeinated teas and coffee, non-carbonated [place] AVOID: Carbonated beverage, caffeinated tea and coffee, all alcoholic beverages BREAD OK: Refined white, wheat or rye bread, dana or soda crackers, Lyn toast, plain rolls, bagels AVOID: Whole-grain bread CEREAL OK: Refined cereals: cooked or ready to eat AVOID: Whole grain cereals and granola, or those containing bran, seeds or nuts DESSERTS OK: Peanut butter and all others except those to "avoid" AVOID: Chocolate, cocoa, coconut, popcorn, nuts, seeds, jam, marmalade FRUITS OK: Canned, cooked, frozen or fresh fruits without seeds or tough skin AVOID: Olives, skin and seeds of fruit MEATS OK: All fresh or preserved meat, fish and fowl AVOID: Any that are prepared with those spices to "avoid" CHEESE & EGGS OK: Eggs, cottage cheese, cream cheese, other cheeses AVOID: All cheeses made with those spices to "avoid" POTATOES & PASTA OK: Potato, rice, macaroni, noodles, spaghetti AVOID: None SOUPS OK: All soups without heavy seasoning AVOID: Soups made with those spices to "avoid" VEGETABLES OK: Canned, cooked, fresh or frozen mildly flavored vegetables without seeds, skins or coarse fiber AVOID: Vegetables prepared with those spices to "avoid"; skin and seeds of vegetables and those with coarse fiber SPICES OK: Salt, lemon and [place] juice, vinegar, all extracts, andrew, cinnamon, thyme, mace, allspice, paprika AVOID: [place] powder, cloves, pepper, seed spices, garlic, gravy pickles, highly seasoned salad dressings How To Quit Smoking Smoking is one of the hardest habits to break. About half of all those who have ever smoked have been able to quit, and most of those (about 70%) who still smoke want to quit. Here are some of the best ways to stop smoking. Keep Trying: It takes most smokers about 8 tries before they are finally able to fully quit. So, the more often you try and fail, the better your chance of quitting the next time! So, don't give up! Go Cold [place]: Most ex-smokers quit cold turkey. Trying to cut back gradually doesn't seem to work as well, perhaps because it continues the smoking habit. Also, it is possible to fool yourself by inhaling more while smoking fewer cigarettes. This results in the same amount of nicotine in your body! Get Support: Support programs can make an important difference, especially for the heavy smoker. These groups offer lectures, methods to change your behavior and peer support. Call the free national Quitline for more information. 623-CDCQ-FEU (397-340-6921). Low-cost or free programs are offered by many hospitals, local chapters of the [employer] (970-834-8202) and the [employer] (986-396-1421). Support at home is important too. Non-smokers can help by offering praise and encouragement. If the smoker fails to quit, encourage them to try again! Dhnw-Fjs-Ewvclob Medicines: For those who can't quit on their own, Nicotine Replacement Therapy (NRT) may make quitting much easier. Certain aids such as the nicotine patch, gum and lozenge are available without a prescription. However, it is best to use these under the guidance of your doctor. The skin patch provides a steady supply of nicotine to the body. Nicotine gum and lozenge gives temporary bursts of low levels of nicotine. Both methods take the edge off the craving for cigarettes. WARNING: If you feel symptoms of nicotine overdose, such as nausea, vomiting, dizziness, weakness, or fast heartbeat, stop using these and see your doctor. Prescription Medicines: After evaluating your smoking patterns and prior attempts at quitting, your doctor may offer a prescription medicine such as bupropion (Zyban, Wellbutrin), varenicline (Chantix, Champix), a niocotine inhaler or nasal spray. Each has its unique advantage and side effects which your doctor can review with you. Health Benefits Of Quitting: The benefits of quitting start right away and keep improving the longer you go without smokin minutes: blood pressure and pulse return to normal 8 hours: oxygen levels return to normal 2 days: ability to smell and taste begins to improve as damaged nerves start to regrow 2-3 weeks: circulation and lung function improves 1-9 months: decreased cough, congestion and shortness of breath; less tired 1 year: risk of heart attack decreases by half 5 years: risk of lung cancer decreases by half; risk of stroke becomes the same as a non-smoker For information about how to quit smoking, visit the following links: National Cancer [place] , Clearing the Air, Quit Smoking Today - an online booklet. http://www.smokefree.gov/pubs/clearing_the_air.pdf Smokefree.gov http://smokefree.gov/ QuitNet http://www.quitnet.com/ Hydrocodone Bitartrate, Acetaminophen Oral tablet What is this medicine? ACETAMINOPHEN; HYDROCODONE (a set a LEV mario fen; jasen droe KOE done) is a pain reliever. It is used to treat mild to moderate pain. How should I use this medicine? Take this medicine by mouth. Swallow it with a full glass of water. Follow the directions on the prescription label. If the medicine upsets your stomach, take the medicine with food or milk. Do not take more than you are told to take. Talk to your lace paper machine operator regarding the use of this medicine in children. This medicine is not approved for use in children. What side effects may I notice from receiving this medicine? Side effects that you should report to your doctor or health tree care foreman as soon as possible: allergic reactions like skin rash, itching or hives, swelling of the face, lips, or tongue breathing problems confusion feeling faint or lightheaded, falls stomach pain yellowing of the eyes or skin Side effects that usually do not require medical attention (report to your doctor or health tree care foreman if they continue or are bothersome): nausea, vomiting stomach upset What may interact with this medicine? alcohol antihistamines isoniazid medicines for depression, anxiety, or psychotic disturbances medicines for sleep muscle relaxants naltrexone narcotic medicines (opiates) for pain phenobarbital ritonavir tramadol What if I miss a dose? If you miss a dose, take it as soon as you can. If it is almost time for your next dose, take only that dose. Do not take double or extra doses. Where should I keep my medicine? Keep out of the reach of children. This medicine can be abused. Keep your medicine in a safe place to protect it from theft. Do not share this medicine with anyone. Selling or giving away this medicine is dangerous and against the law. Store at room temperature between 15 and 30 degrees C (59 and 86 degrees F). Protect from light. Keep container tightly closed. Throw away any unused medicine after the expiration date. Discard unused medicine and used packaging carefully. Pets and children can be harmed if they find used or lost packages. What should I tell my health care provider before I take this medicine? They need to know if you have any of these conditions: brain tumor Crohn's disease, inflammatory bowel disease, or ulcerative colitis drink more than 3 alcohol-containing drinks per day drug abuse or addiction head injury heart or circulation problems kidney disease or problems going to the bathroom liver disease lung disease, asthma, or breathing problems an unusual or allergic reaction to acetaminophen, hydrocodone, other opioid analgesics, other medicines, foods, dyes, or preservatives or trying to get breast-feeding What should I watch for while using this medicine? Tell your doctor or health tree care foreman if your pain does not go away, if it gets worse, or if you have new or a different type of pain. You may develop tolerance to the medicine. Tolerance means that you will need a higher dose of the medicine for pain relief. Tolerance is normal and is expected if you take the medicine for a long time. Do not suddenly stop taking your medicine because you may develop a severe reaction. Your body becomes used to the medicine. This does NOT mean you are addicted. Addiction is a behavior related to getting and using a drug for a non-medical reason. If you have pain, you have a medical reason to take pain medicine. Your doctor will tell you how much medicine to take. If your doctor wants you to stop the medicine, the dose will be slowly lowered over time to avoid any side effects. You may get drowsy or dizzy when you first start taking the medicine or change doses. Do not drive, use machinery, or do anything that may be dangerous until you know how the medicine affects you. Stand or sit up slowly. There are different types of narcotic medicines (opiates) for pain. If you take more than one type at the same time, you may have more side effects. Give your health care provider a list of all medicines you use. Your doctor will tell you how much medicine to take. Do not take more medicine than directed. Call emergency for help if you have problems breathing. The medicine will cause constipation. Try to have a bowel movement at least every 2 to 3 days. If you do not have a bowel movement for 3 days, call your doctor or health tree care foreman. Too much acetaminophen can be very dangerous. Do not take Tylenol (acetaminophen) or medicines that contain acetaminophen with this medicine. Many non-prescription medicines contain acetaminophen. Always read the labels carefully. Sucralfate Oral tablet What is this medicine? SUCRALFATE (RADHA anatoliy fate) helps to treat ulcers of the intestine. How should I use this medicine? Take this medicine by mouth with a glass of water. Follow the directions on the prescription label. This medicine works best if you take it on an empty stomach, 1 hour before meals. Take your doses at regular intervals. Do not take your medicine more often than directed. Do not stop taking except on your doctor's advice. Talk to your lace paper machine operator regarding the use of this medicine in children. Special care may be needed. What side effects may I notice from receiving this medicine? Side effects that you should report to your doctor or health tree care foreman as soon as possible: allergic reactions like skin rash, itching or hives, swelling of the face, lips, or tongue difficulty breathing Side effects that usually do not require medical attention (report to your doctor or health tree care foreman if they continue or are bothersome): back pain constipation drowsy, dizzy dry mouth headache stomach upset, gas trouble sleeping What may interact with this medicine? antacid cimetidine digoxin ketoconazole phenytoin quinidine ranitidine some antibiotics like ciprofloxacin, norfloxacin, and ofloxacin theophylline thyroid hormones warfarin What if I miss a dose? If you miss a dose, take it as soon as you can. If it is almost time for your next dose, take only that dose. Do not take double or extra doses. Where should I keep my medicine? Keep out of the reach of children. Store at room temperature between 15 and 30 degrees C (59 and 86 degrees F). Keep container tightly closed. Throw away any unused medicine after the expiration date. What should I tell my health care provider before I take this medicine? They need to know if you have any of these conditions: kidney disease an unusual or allergic reaction to sucralfate, other medicines, foods, dyes, or preservatives or trying to get breast-feeding What should I watch for while using this medicine? Visit your doctor or health tree care foreman for regular check ups. Let your doctor know if your symptoms do not improve or if you feel worse. Antacids should not be taken within one half hour before or after this medicine. Omeprazole Magnesium Gastro-resistant tablet What is this medicine? OMEPRAZOLE (oh ME pray zol) prevents the production of acid in the stomach. It is used to treat the symptoms of heartburn. You can buy this medicine without a prescription. This product is not for long-term use, unless otherwise directed by your doctor or health tree care foreman. How should I use this medicine? Take this medicine by mouth. Follow the directions on the product label. If you are taking this medicine without a prescription, take one tablet every day. Do not use for longer than 14 days or repeat a course of treatment more often than every 4 months unless directed by a doctor or healthcare professional. Take your dose at regular intervals every 24 hours. Swallow the tablet whole with a drink of water. Do not crush, break or chew. This medicine works best if taken on an empty stomach 30 minutes before breakfast. If you are using this medicine with the prescription of your doctor or healthcare professional, follow the directions you were given. Do not take your medicine more often than directed. Talk to your lace paper machine operator regarding the use of this medicine in children. Special care may be needed. What side effects may I notice from receiving this medicine? Side effects that you should report to your doctor or health tree care foreman as soon as possible: allergic reactions like skin rash, itching or hives, swelling of the face, lips, or tongue bone, muscle or joint pain breathing problems chest pain or chest tightness dark yellow or brown urine diarrhea dizziness fast, irregular heartbeat feeling faint or lightheaded fever or sore throat muscle spasm palpitations redness, blistering, peeling or loosening of the skin, including inside the mouth seizures tremors unusual bleeding or bruising unusually weak or tired yellowing of the eyes or skin Side effects that usually do not require medical attention (Report these to your doctor or health tree care foreman if they continue or are bothersome.): constipation dry mouth headache loose stools nausea What may interact with this medicine? Do not take this medicine with any of the following medications: atazanavir clopidogrel nelfinavir This medicine may also interact with the following medications: ampicillin certain medicines for anxiety or sleep certain medicines that treat or prevent blood clots like warfarin cyclosporine diazepam digoxin disulfiram iron salts phenytoin prescription medicine for fungal or yeast infection like itraconazole, ketoconazole, voriconazole saquinavir tacrolimus What if I miss a dose? If you miss a dose, take it as soon as you can. If it is almost time for your next dose, take only that dose. Do not take double or extra doses. Where should I keep my medicine? Keep out of the reach of children. Store at room temperature between 20 and 25 degrees C (68 and 77 degrees F). Protect from light and moisture. Throw away any unused medicine after the expiration date. What should I tell my health care provider before I take this medicine? They need to know if you have any of these conditions: black or bloody stools chest pain difficulty swallowing have had heartburn for over 3 months have heartburn with dizziness, lightheadedness or sweating liver disease stomach pain unexplained weight loss vomiting with blood wheezing an unusual or allergic reaction to omeprazole, other medicines, foods, dyes, or preservatives or trying to get breast-feeding What should I watch for while using this medicine? It can take several days before your heartburn gets better. Check with your doctor or [facility] if your condition does not start to get better, or if it gets worse. Do not treat diarrhea with over the counter products. Contact your doctor if you have diarrhea that lasts more than 2 days or if it is severe and watery. Do not treat yourself for heartburn with this medicine for more than 14 days in a row. You should only use this medicine for a 2-week treatment period once every 4 months. If your symptoms return shortly after your therapy is complete, or within the 4 month time frame, call your doctor or health [facility] care foreman. You have been given the following additional information: Epigastric Pain (Uncertain Cause) Gastritis Vs. Ulcer Constipation (Adult) Diet, [place] (Adult) Smoking Cessation Hydrocodone Bitartrate, Acetaminophen Oral tablet Sucralfate Oral tablet Omeprazole Magnesium Gastro-resistant tablet Rest. Do not work for three days. (Electronically signed by Felipe Burch DO 05/29/2016 8:00)
--- NOTE | 2016-05-29 08:01 | ED MED RECONCILIATION SUMMARY ---
Patient: TRACIE CHAVEZ Medication Reconciliation Report [facility] VisitID: [id number] [address] [place] [address] 30y, M Registration Date/Time: 05/28/2016 Weight: 79.3 kg Height/Length: 70 in. BMI: 25.1 ALLERGIES: None The patient's Home Medications are listed below: NONE. The source(s) of the original Home Medication information: Not obtained. The following Medications were given to the patient in the Emergency Department: IV NS IV Fluids bolus 0, then 1000 mL/hr, administered: 05/28/2016 4:47:00 PM Zofran [IVP] IVP 4 mg, administered: 05/28/2016 4:54:00 PM Reglan [IVP] IVP 10 mg, administered: 05/28/2016 4:56:00 PM PROTONIX [IVP] IVP 40 mg, administered: 05/28/2016 5:00:00 PM Carafate [PO] PO 1 gm, administered: 05/28/2016 6:50:00 PM The following Medications were prescribed to the patient: Take magnesium citrate and Fleets enema according to label instructions. Available over the counter. -- Felipe Burch DO Dulcolax (available over the counter): take according to label instructions. -- Felipe Burch DO Hydrocodone/APAP 5mg / 325mg: take 1-2 orally every 8 hours as needed for pain. Dispense ten (10). No refill. -- Felipe Burch DO Carafate 1 gm tablets: take 1 orally four times daily (1 hour before meals and at bedtime). Dispense sixty (60). No refills. Substitution is permissible. -- Felipe Burch DO Prilosec 20 mg capsules: Take 1 capsule orally once daily. Dispense fifteen (15). No refills. Substitution is permissible. -- Felipe Burch DO
--- NOTE | 2016-05-29 08:01 | ED MAR SUMMARY ---
..... Medication Administration Record [facility] [address] [place] [address] Patient: TRACIE CHAVEZ Visit ID: [id number] 30y, M Weight: 79.3 kg Height/Length: 70 in BMI: 25.1 ALLERGIES: None Start 16:47 05/28/2016 Marlon Green R.N., Stop 19:00 05/28/2016 Marlon Green R.N. Medication Administered: IV NS (SALINE), Dose: IV Fluids over 60 minute(s), Rate: 1000 mL/hr, Dispensed: 1000 mL bag, Site: #1 right AC. Medication Ordered: IV NS : initial bolus 1000 mL (1000 mL/hr), then 1000 mL/hr for X2 (NOW). Given 16:54 05/28/2016 Marlon Green R.N. Medication Administered: ZOFRAN [IVP] (ONDANSETRON HCL), Dose: 4 mg IVP over 2 minute(s), Site: #1 right AC. Medication Ordered: Zofran IV 4 mg (NOW). Given 16:56 05/28/2016 Marlon Green R.N. Medication Administered: REGLAN [IVP] (METOCLOPRAMIDE HCL), Dose: 10 mg IVP over 2 minute(s), Site: #1 right AC. Medication Ordered: Reglan IV 10 mg (NOW). Given 17:00 05/28/2016 Marlon Green R.N. Medication Administered: PROTONIX [IVP] (PANTOPRAZOLE SODIUM), Dose: 40 mg IVP over 2 minute(s), Site: #1 right AC. Medication Ordered: Protonix IVP 40mg 40 mg (Mix in NS 10ml over 2min). Given 18:50 05/28/2016 Marlon Green R.N. Medication Administered: CARAFATE [PO] (SUCRALFATE), Dose: 1 gm Oral Suspension PO. Medication Ordered: Carafate PO 1 gm (NOW).
--- NOTE | 2016-05-29 08:01 | ED MAR SUMMARY ---
..... Medication Administration Record [facility] [address] [place] [address] Patient: TRACIE CHAVEZ Visit ID: [id number] 30y, M Weight: 79.3 kg Height/Length: 70 in BMI: 25.1 ALLERGIES: None Start 16:47 05/28/2016 Marlon Green R.N., Stop 19:00 05/28/2016 Marlon Green R.N. Medication Administered: IV NS (SALINE), Dose: IV Fluids over 60 minute(s), Rate: 1000 mL/hr, Dispensed: 1000 mL bag, Site: #1 right AC. Medication Ordered: IV NS : initial bolus 1000 mL (1000 mL/hr), then 1000 mL/hr for X2 (NOW). Given 16:54 05/28/2016 Marlon Green R.N. Medication Administered: ZOFRAN [IVP] (ONDANSETRON HCL), Dose: 4 mg IVP over 2 minute(s), Site: #1 right AC. Medication Ordered: Zofran IV 4 mg (NOW). Given 16:56 05/28/2016 Marlon Green R.N. Medication Administered: REGLAN [IVP] (METOCLOPRAMIDE HCL), Dose: 10 mg IVP over 2 minute(s), Site: #1 right AC. Medication Ordered: Reglan IV 10 mg (NOW). Given 17:00 05/28/2016 Marlon Green R.N. Medication Administered: PROTONIX [IVP] (PANTOPRAZOLE SODIUM), Dose: 40 mg IVP over 2 minute(s), Site: #1 right AC. Medication Ordered: Protonix IVP 40mg 40 mg (Mix in NS 10ml over 2min). Given 18:50 05/28/2016 Marlon Green R.N. Medication Administered: CARAFATE [PO] (SUCRALFATE), Dose: 1 gm Oral Suspension PO. Medication Ordered: Carafate PO 1 gm (NOW).
--- NOTE | 2016-05-29 08:01 | ED MED RECONCILIATION SUMMARY ---
Patient: TRACIE CHAVEZ Medication Reconciliation Report [facility] VisitID: [id number] [address] [place] [address] 30y, M Registration Date/Time: 05/28/2016 Weight: 79.3 kg Height/Length: 70 in. BMI: 25.1 ALLERGIES: None The patient's Home Medications are listed below: NONE. The source(s) of the original Home Medication information: Not obtained. The following Medications were given to the patient in the Emergency Department: IV NS IV Fluids bolus 0, then 1000 mL/hr, administered: 05/28/2016 4:47:00 PM Zofran [IVP] IVP 4 mg, administered: 05/28/2016 4:54:00 PM Reglan [IVP] IVP 10 mg, administered: 05/28/2016 4:56:00 PM PROTONIX [IVP] IVP 40 mg, administered: 05/28/2016 5:00:00 PM Carafate [PO] PO 1 gm, administered: 05/28/2016 6:50:00 PM The following Medications were prescribed to the patient: Take magnesium citrate and Fleets enema according to label instructions. Available over the counter. -- Felipe Burch DO Dulcolax (available over the counter): take according to label instructions. -- Felipe Burch DO Hydrocodone/APAP 5mg / 325mg: take 1-2 orally every 8 hours as needed for pain. Dispense ten (10). No refill. -- Felipe Burch DO Carafate 1 gm tablets: take 1 orally four times daily (1 hour before meals and at bedtime). Dispense sixty (60). No refills. Substitution is permissible. -- Felipe Burch DO Prilosec 20 mg capsules: Take 1 capsule orally once daily. Dispense fifteen (15). No refills. Substitution is permissible. -- Felipe Burch DO
== END 2016-05-28 19:50 | disposition home or self-care (01) ==
LOC: ED SRH 15:30
DX: R10.13 Epigastric pain (principal); K25.3 Acute gastric ulcer without hemorrhage or perforation; K59.00 Constipation, unspecified; F17.200 Nicotine dependence, unspecified, uncomplicated
CPT/HCPCS: 90004; 90100; 92235; 92530; 92760; 92761; 92762; 92763; 92764; 92765; 92766; 92767; 95059